=== PATIENT | female | born 1985 | race Asian ===

== ENCOUNTER 2019-02-28 16:27 | Emergency (ER) | payer OTHER ==
[2019-02-28 16:48] VITALS: BP 122/92; PULSE 110; TEMP 98.2; BMI 23.8
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
== END 2019-02-28 18:40 | disposition home or self-care (01) ==
LOC: JER 16:27
DX: S90.414A Abrasion, right lesser toe(s), initial encounter (principal); Y04.2XXA Assault by strike against or bumped into by another person, initial encounter; Y93.89 Activity, other specified; Y92.018 Other place in single-family (private) house as the place of occurrence of the external cause; Y99.8 Other external cause status; Y07.01 Husband, perpetrator of maltreatment and neglect
CPT/HCPCS: 73660-TC-FY; 99281-25

== ENCOUNTER 2019-12-24 04:36 | Emergency (ER) | payer OTHER ==
[2019-12-24 04:55] VITALS: BMI 24.5
--- NOTE | 2019-12-24 05:11 | PDOC ---
History of Present Illness - General Chief Complaint: Pain Stated Complaint: ABD PAIN Time Seen by Provider: 12/24/19 05:10 History Source: Patient - History of Present Illness Initial Comments: 12/24/19 05:44 34 year old female c/o right sided pelvic pain radiating to the lower back. patient reports nausea, denies vomiting, dysuria, urinary symptoms. patient reports that she is currently on her period. reports 2 periods this month which is unusual. denies abdominal pain PMHX: disc disease; appendectomy 12/24/19 06:09 Past History - Medical History Allergies/Adverse Reactions: Allergies Allergy/AdvReac Type Severity Reaction Status Date / Time No Known Allergies Allergy Verified 12/24/19 04:54 Home Medications: Ambulatory Orders Cephalexin Monohydrate [Keflex -] 500 mg PO BID #14 capsule 12/24/19 Ibuprofen 600 mg PO Q6H #30 tablet 12/24/19 COPD: No - Surgical History Appendectomy: Yes - Psycho-Social/Smoking History Smoking History: Never smoked Have you smoked in the past 12 months: No Information on smoking cessation initiated: No - Substance Abuse Hx (Audit-C & DAST Scrn) How often the patient has a drink containing alcohol: Never Score: In Men: 4 or > Positive; In Women: 3 or > Positive: 0 Screen Result (Pos requires Nsg. Audit-10AR): Negative In the last yr the pt used illegal drug/Rx for NonMed reason: No Score: Yes response is considered Positive: 0 Screen Result (Positive result requires Nsg. DAST-10): Negative Review of Systems - Review of Systems Able to Perform ROS?: Yes Is the patient limited Algerian proficient: No Constitutional: No: Symptoms Reported, See HPI, Chills, Diaphoresis, Fever, Loss of Appetite, Malaise, Night Sweats, Weakness, Weight Stable, Unintentional Wgt. Loss, Unexplained wgt Loss, Other ABD/GI: Yes: Nausea, Other (pelvic pain) : No: Symptoms Reported, See HPI, Burning, Dysuria, Discharge, Frequency, Flank Pain, Hematuria, Incontinence, Pain, Urgency, Testicular Mass, Testicular Swelling, Lesions, Testicular Pain, Other *Physical Exam - Vital Signs Last Vital Signs Temp Pulse Resp BP Pulse Ox 98.2 F 82 18 106/72 99 12/24/19 04:40 12/24/19 04:40 12/24/19 04:40 12/24/19 04:40 12/24/19 04:40 - Physical Exam General Appearance: Yes: Appropriately Dressed Respiratory/Chest: positive: Lungs Clear, Normal Breath Sounds Female Pelvic Exam: positive: normal external exam, cervical os closed, adnexal tenderness (b/l adnexal tenderness), vaginal bleeding Gastrointestinal/Abdominal: positive: Normal Bowel Sounds, Soft, Other (right p elvic area pain). negative: Tender Musculoskeletal: positive: Normal Inspection. negative: CVA Tenderness Extremity: positive: Normal Capillary Refill, Normal Inspection Integumentary: positive: Normal Color, Dry, Warm Neurologic: positive: Fully Oriented, Alert, Normal Mood/Affect ED Treatment Course - LABORATORY CBC & Chemistry Diagram: 12/24/19 05:35 12/24/19 05:35 ED Progress Note - Progress Note Progress Note: 12/24/19 06:10 A: pelvic pain P: cbc cmp ua urine transvaginal US Medical Decision Making - Medical Decision Making 12/24/19 0700 patient signed out to wanda LOPEZ. pending labs and US Discharge - Discharge Information Problems reviewed: Yes Clinical Impression/Diagnosis: Pelvic pain Ovarian cyst Qualifiers: Laterality: right Qualified Code(s): N83.201 - Unspecified ovarian cyst, right side Uterine fibroid Qualifiers: Uterine leiomyoma location: unspecified location Qualified Code(s): D25.9 - Leiomyoma of uterus, unspecified UTI (urinary tract infection) Qualifiers: Urinary tract infection type: acute cystitis Hematuria presence: with hematuria Qualified Code(s): N30.01 - Acute cystitis with hematuria Condition: Fair Disposition: HOME - Additional Discharge Information Prescriptions: Ibuprofen 600 mg PO Q6H #30 tablet Cephalexin Monohydrate [Keflex -] 500 mg PO BID #14 capsule - Follow up/Referral Referrals: Carmela Lo MD [Primary Care Provider] - Sharif Morse MD [Staff Physician] - - Patient Discharge Instructions Patient Printed Discharge Instructions: DI for Uterine Fibroids, DI for Urinary Tract Infection (UTI), DI for Ovarian Cyst Additional Instructions: You were seen today for your pelvic pain. Your urine shows a urinary tract infection. Please take the antibiotics as directed. Finish the entire dose even if you feel better. Drink plenty of fluids. You also have an ovarian cyst as well as a uterine fibroid. This is probably the cause of your dysfunctional bleeding. You may take Motrin 600 mg every 6 hours as needed for pain. Please follow-up with [facility] this week. A referral has been provided to you. Return to the ER for increased bleeding, soaking 1 pad an hour or more, increased pain, vomiting or if you have any changes in your symptoms - Post Discharge Activity Work/Back to School Note: Back to Work
[2019-12-24] MEDS ORDERED: ACETAMINOPHEN 1000 MG/100 ML VIAL (NON FORMULARY) IVPB ONE (05:29)
[2019-12-24] MEDS ORDERED: SODIUM CHLORIDE 1,000 ML IV STA (05:29)
--- NOTE | 2019-12-24 05:34 | PDOC ---
*Physical Exam - Vital Signs Last Vital Signs Temp Pulse Resp BP Pulse Ox 98.2 F 82 18 106/72 99 12/24/19 04:40 12/24/19 04:40 12/24/19 04:40 12/24/19 04:40 12/24/19 04:40 ED Treatment Course - LABORATORY CBC & Chemistry Diagram: 12/24/19 05:35 12/24/19 05:35 Medical Decision Making - Medical Decision Making 12/24/19 05:34 Patient seen by the advanced practice provider under my supervision. Ancillary testing reviewed as necessary. I agree with plan as outlined by the advanced practice provider. Discharge - Discharge Information Problems reviewed: Yes Clinical Impression/Diagnosis: Pelvic pain Ovarian cyst Qualifiers: Laterality: right Qualified Code(s): N83.201 - Unspecified ovarian cyst, right side Uterine fibroid Qualifiers: Uterine leiomyoma location: unspecified location Qualified Code(s): D25.9 - Leiomyoma of uterus, unspecified UTI (urinary tract infection) Qualifiers: Urinary tract infection type: acute cystitis Hematuria presence: with hematuria Qualified Code(s): N30.01 - Acute cystitis with hematuria Condition: Fair Disposition: HOME - Additional Discharge Information Prescriptions: Ibuprofen 600 mg PO Q6H #30 tablet Cephalexin Monohydrate [Keflex -] 500 mg PO BID #14 capsule - Follow up/Referral Referrals: Carmela Lo MD [Primary Care Provider] - Sharif Morse MD [Staff Physician] - - Patient Discharge Instructions Patient Printed Discharge Instructions: DI for Uterine Fibroids, DI for Urinary Tract Infection (UTI), DI for Ovarian Cyst Additional Instructions: You were seen today for your pelvic pain. Your urine shows a urinary tract infection. Please take the antibiotics as dir ected. Finish the entire dose even if you feel better. Drink plenty of fluids. You also have an ovarian cyst as well as a uterine fibroid. This is probably the cause of your dysfunctional bleeding. You may take Motrin 600 mg every 6 hours as needed for pain. Please follow-up with [facility]ER[facility]ECT[facility] this week. A referral has been provided to you. Return to the ER for increased bleeding, soaking 1 pad an hour or more, increased pain, vomiting or if you have any changes in your symptoms - Post Discharge Activity Work/Back to School Note: Back to Work
[2019-12-24] MEDS ORDERED: ACETAMINOPHEN INJECTION 100 ML IVPB ONE (05:35)
[2019-12-24] MEDS ORDERED: ONDANSETRON 4 MG/2 ML VIAL ONE (05:43)
[2019-12-24] MEDS ORDERED: ONDANSETRON 4 MG/2 ML VIAL IVPUSH ONE (05:43)
[2019-12-24 05:59] LABS: BASO % 0.3 % (0-2.0); EOS % 0.8 % (0-4.5); HEMATOCRIT 37.9 % (32.4-45.2); HEMOGLOBIN 12.3 GM/dL (10.7-15.3); LYMPH % 25.2 % (8-40); MCH 28.4 pg (25.7-33.7); MCHC 32.5 g/dl (32.0-36.0); MEAN CELL VOLUME 87.3 fl (80-96); MEAN PLT VOLUME 9.1 fl (7.5-11.1); MONO % 4.8 % (3.8-10.2); NEUT % 68.9 % (42.8-82.8); PLATELET COUNT 312 K/MM3 (134-434); RBC 4.34 M/mm3 (3.60-5.2); RDW 12.7 % (11.6-15.6); WHITE BLOOD COUNT 8.1 K/mm3 (4.0-10.0)
[2019-12-24 06:23] LABS: ALBUMIN 3.6 g/dl (3.4-5.0); BILIRUBIN,TOTAL 0.2 mg/dL (0.2-1); BLOOD UREA NITROGEN 10.3 mg/dL (7-18); CALCIUM 8.5 mg/dL (8.5-10.1); CREATININE 0.7 mg/dL (0.55-1.3); POTASSIUM 4.2 mmol/L (3.5-5.1); TOT PROT 7.4 g/dl (6.4-8.2)
[2019-12-24 06:40] LABS: EPI CELLS >36 /uL (0-25.1); HYALINE CASTS 23 /uL (0-3.1); URINE APPEARANCE CLOUDY; URINE BACTERIA 1835 /uL (0-1359); URINE BILIRUBIN NEGATIVE (NEGATIVE); URINE COLOR DK YELLOW; URINE GLUCOSE (UA) NEGATIVE (NEGATIVE); URINE KETONE TRACE (NEGATIVE); URINE LEUK ESTERASE TRACE (NEGATIVE); URINE NITRITE NEGATIVE (NEGATIVE); URINE PROTEIN 1+ (NEGATIVE); URINE RBC 226 /uL (0-23.9); URINE WBC 87 /uL (0-25.8)
[2019-12-24 06:42] LABS: HCG,QUALITATIVE URINE Negative
--- NOTE | 2019-12-24 07:51 | PDOC ---
*Physical Exam - Vital Signs Last Vital Signs Temp Pulse Resp BP Pulse Ox 98.2 F 82 18 106/72 99 12/24/19 04:40 12/24/19 04:40 12/24/19 04:40 12/24/19 04:40 12/24/19 04:40 - Physical Exam General Appearance: Yes: Nourished, Appropriately Dressed. No: Apparent Distress ED Treatment Course - LABORATORY CBC & Chemistry Diagram: 12/24/19 05:35 12/24/19 05:35 - ADDITIONAL ORDERS Additional order review: Laboratory Results 12/24/19 12/24/19 05:35 05:30 Sodium 139 Potassium 4.2 Chloride 109 H Carbon Dioxide 24 Anion Gap 6 L BUN 10.3 Creatinine 0.7 Est GFR (CKD-EPI)AfAm 132.87 Est GFR (CKD-EPI)NonAf 114.64 Random Glucose 99 Calcium 8.5 Total Bilirubin 0.2 AST 13 L ALT 18 Alkaline Phosphatase 56 Total Protein 7.4 Albumin 3.6 Urine Color Dk yellow Urine Appearance Cloudy Urine pH 5.0 Ur Specific [place] 1.024 Urine Protein 1+ H Urine Glucose (UA) Negative Urine Ketones Trace H Urine Blood 3+ H Urine Nitrite Negative Urine Bilirubin Negative Urine Urobilinogen 1.0 Ur Leukocyte Esterase Trace Urine WBC (Auto) 87 Urine RBC (Auto) 226 Urine Casts (Auto) 23 U Epithel Cells (Auto) >36 Urine Bacteria (Auto) 1835 Urine HCG, Qual Negative 12/24/19 05:35 RBC 4.34 MCV 87.3 MCHC 32.5 RDW 12.7 MPV 9.1 Neutrophils % 68.9 Lymphocytes % 25.2 Monocytes % 4.8 Eosinophils % 0.8 Basophils % 0.3 - Medications Given in the ED: ED Medications Discontinued Medications Generic Name Dose Route Start Last Admin Trade Name Freq PRN Reason Stop Dose Admin Acetaminophen 1,000 mg 12/24/19 05:29 12/24/19 06:17 Ofirmev Injection - IVPB 12/24/19 05:30 1,000 mg ONCE ONE Administration Sodium Chloride 1,000 mls @ 1,000 mls/hr 12/24/19 05:29 12/24/19 06:17 Normal Saline - IV 12/24/19 06:28 1,000 mls/hr ASDIR STA Administration Ondansetron HCl 4 mg 12/24/19 05:43 12/24/19 06:17 Zofran Injection IVPUSH 12/24/19 05:44 4 mg ONCE ONE Administration Medical Decision Making - Medical Decision Making 12/24/19 07:50 Sign out received from ELIOT Lange at 0700 Pt sleeping in vertical Pending TVUS for reported pelvic pain/adenexal pain on previous nurse obgyn exam Re-evaluate 12/24/19 10:31 Patient with a small uterine fibroid on ultrasound, also small right-sided ovarian cyst. Likely cause for increased dysfunctional uterine bleeding and pain. We will treat with ibuprofen. Urine also appears infected. We will treat with Keflex. Discharge home I discussed the physical exam findings, ancillary test results and final diagnoses with the patient. I answered all of the patient's questions. The p atient was satisfied with the care received and felt comfortable with the discharge plan and treatment plan. The Patient agrees to follow up with the primary care physician/specialist within 24-72 hours. Return precautions were given. Discharge - Discharge Information Problems reviewed: Yes Clinical Impression/Diagnosis: Pelvic pain Ovarian cyst Qualifiers: Laterality: right Qualified Code(s): N83.201 - Unspecified ovarian cyst, right side Uterine fibroid Qualifiers: Uterine leiomyoma location: unspecified location Qualified Code(s): D25.9 - Leiomyoma of uterus, unspecified UTI (urinary tract infection) Qualifiers: Urinary tract infection type: acute cystitis Hematuria presence: with hematuria Qualified Code(s): N30.01 - Acute cystitis with hematuria Condition: Fair Disposition: HOME - Admission No - Follow up/Referral Referrals: Carmela Lo MD [Primary Care Provider] - Sharif Morse MD [Staff Physician] - - Patient Discharge Instructions Patient Printed Discharge Instructions: DI for Uterine Fibroids, DI for Ovarian Cyst, DI for Urinary Tract Infection (UTI) Additional Instructions: You were seen today for your pelvic pain. Your urine shows a urinary tract infection. Please take the antibiotics as directed. Finish the entire dose even if you feel better. Drink plenty of fluids. You also have an ovarian cyst as well as a uterine fibroid. This is probably the cause of your dysfunctional bleeding. You may take Motrin 600 mg every 6 hours as needed for pain. Please follow-up with [facility] this week. A referral has been provided to you. Return to the ER for increased bleeding, soaking 1 pad an hour or more, increased pain, vomiting or if you have any changes in your symptoms - Post Discharge Activity Work/Back to School Note: Back to Work
[2019-12-24 10:54] VITALS: BP 125/82; PULSE 86; TEMP 98.1
== END 2019-12-24 10:55 | disposition home or self-care (01) ==
LOC: JER 04:36
PROC: 3E033NZ Introduction of Analgesics, Hypnotics, Sedatives into Peripheral Vein, Percutaneous Approach (ICD-10-PCS; principal; 2019-12-24)
PROC: 3E033GC Introduction of Other Therapeutic Substance into Peripheral Vein, Percutaneous Approach (ICD-10-PCS; 2019-12-24)
PROC: 3E0337Z Introduction of Electrolytic and Water Balance Substance into Peripheral Vein, Percutaneous Approach (ICD-10-PCS; 2019-12-24)
DX: N83.201 Unspecified ovarian cyst, right side (principal); D25.9 Leiomyoma of uterus, unspecified; N30.01 Acute cystitis with hematuria
CPT/HCPCS: 36415; 76830-TC; 80053; 81003; 84703; 85025; 99285-25; J0131

== ENCOUNTER 2020-12-02 20:22 | Emergency (ER) | payer OTHER ==
[2020-12-02 20:35] VITALS: BP 117/77; PULSE 97; TEMP 98; BMI 26.5
[2020-12-02] MEDS ORDERED: SODIUM CHLORIDE 1,000 ML IV STA (21:35)
[2020-12-02] MEDS ORDERED: ONDANSETRON 4 MG/2 ML VIAL IVPUSH ONE (21:35)
[2020-12-02] MEDS ORDERED: morphine CARPU-JECT 2 MG/1 ML DISP.SYRIN IVPUSH ONE (21:35)
[2020-12-02] MEDS ORDERED: MORPHINE SULFATE 2 MG/ML VIAL ONE (21:53)
[2020-12-02] MEDS ORDERED: ONDANSETRON 4 MG/2 ML VIAL ONE (21:53)
[2020-12-02 22:46] LABS: HEMOGLOBIN 13.7 GM/dL (10.7-15.3); MCH 27.9 pg (25.7-33.7); MCHC 32.5 g/dl (32.0-36.0); MEAN CELL VOLUME 85.6 fl (80-96); MEAN PLT VOLUME 8.5 fl (7.5-11.1); PLATELET COUNT 325 10^3/uL (134-434); RDW 13.2 % (11.6-15.6); WHITE BLOOD COUNT 11.7 K/mm3 (4.0-10.0)
[2020-12-02 22:59] LABS: HCG,QUALITATIVE URINE Negative
[2020-12-02 23:13] LABS: CALCIUM 8.9 mg/dL (8.5-10.1)
[2020-12-02 23:14] LABS: ALBUMIN 4.4 g/dl (3.4-5.0); BLOOD UREA NITROGEN 9.4 mg/dL (7-18)
[2020-12-02 23:17] LABS: CREATININE 0.6 mg/dL (0.55-1.3)
[2020-12-02 23:18] LABS: BILIRUBIN,TOTAL 0.4 mg/dL (0.2-1); TOT PROT 8.6 g/dl (6.4-8.2)
[2020-12-02 23:18] LABS: EPI CELLS 25 /uL (0-25.1); HYALINE CASTS 3 /uL (0-3.1); URINE APPEARANCE CLOUDY; URINE BACTERIA 710 /uL (0-1359); URINE BILIRUBIN NEGATIVE (NEGATIVE); URINE COLOR YELLOW; URINE GLUCOSE (UA) NEGATIVE (NEGATIVE); URINE KETONE 3+ (NEGATIVE); URINE LEUK ESTERASE NEGATIVE (NEGATIVE); URINE NITRITE NEGATIVE (NEGATIVE); URINE PROTEIN TRACE (NEGATIVE); URINE RBC 37 /uL (0-23.9); URINE WBC 12 /uL (0-25.8)
== END 2020-12-03 02:21 | disposition home or self-care (01) ==
LOC: JER 20:22
PROC: 3E033NZ Introduction of Analgesics, Hypnotics, Sedatives into Peripheral Vein, Percutaneous Approach (ICD-10-PCS; principal; 2020-12-02)
PROC: 3E033GC Introduction of Other Therapeutic Substance into Peripheral Vein, Percutaneous Approach (ICD-10-PCS; 2020-12-02)
PROC: 3E0337Z Introduction of Electrolytic and Water Balance Substance into Peripheral Vein, Percutaneous Approach (ICD-10-PCS; 2020-12-02)
DX: R10.31 Right lower quadrant pain (principal); N83.291 Other ovarian cyst, right side; D25.9 Leiomyoma of uterus, unspecified
CPT/HCPCS: 36415; 74176-TC; 76830-TC; 80053; 81003; 84703; 85027; 99285-25

== ENCOUNTER 2023-03-26 13:28 | Emergency (ER) | payer OTHER ==
[2023-03-26 13:35] VITALS: BP 113/74; PULSE 97; RESP 18; TEMP 98.2; BMI 26.4
[2023-03-26 15:02] LABS: POTASSIUM 5.7 mmol/L (3.5-5.1)
[2023-03-26 15:03] LABS: CALCIUM 8.8 mg/dL (8.5-10.1)
[2023-03-26 15:04] LABS: BLOOD UREA NITROGEN 11.5 mg/dL (7-18)
[2023-03-26 15:07] LABS: CREATININE 0.7 mg/dL (0.55-1.3)
[2023-03-26 16:01] LABS: BASO % 0.3 % (0-2.0); EOS % 1.5 % (0-4.5); HEMOGLOBIN 13.5 GM/dL (10.7-15.3); LYMPH % 28.5 % (8-40); MCH 28.5 pg (25.7-33.7); MCHC 32.8 g/dl (32.0-36.0); MEAN CELL VOLUME 86.8 fl (80-96); MEAN PLT VOLUME 8.4 fl (7.5-11.1); MONO % 8.1 % (3.8-10.2); NEUT % 61.6 % (42.8-82.8); PLATELET COUNT 312 10^3/uL (134-434); RBC 4.72 M/mm3 (3.60-5.2); RDW 13.5 % (11.6-15.6)
[2023-03-26 16:18] LABS: POTASSIUM 4.2 mmol/L (3.5-5.1)
[2023-03-26 16:19] LABS: CALCIUM 8.9 mg/dL (8.5-10.1)
[2023-03-26 16:20] LABS: BLOOD UREA NITROGEN 11.1 mg/dL (7-18)
[2023-03-26 16:22] LABS: CREATININE 0.6 mg/dL (0.55-1.3)
== END 2023-03-26 17:24 | disposition home or self-care (01) ==
LOC: JER 13:28
DX: D25.9 Leiomyoma of uterus, unspecified (principal)
CPT/HCPCS: 36415; 76830-TC; 80048; 84703; 85025; 86850; 86900; 86901; 99284-25